=== PATIENT | female | born 1955 | race Caucasian/White ===

== ENCOUNTER 2016-10-12 09:58 | Emergency (ER) | payer MEDICAID, OTHER ==
[~2016-10-12] VITALS: Wt 95.0 kg
[~2016-10-12 09:58] MED LIST: DOCU-144 PO; HYDR-3498 PO
[2016-10-12] MEDS ORDERED: SOD CHLORIDE 0.9% 1,000 ML IV STA (19:39)
[2016-10-12] MEDS ORDERED: ONDANSETRON 4 MG INJ IV STA ×2 (19:39→20:31)
[2016-10-12] MEDS ORDERED: MECLIZINE 12.5 MG TAB PO ONE (20:00)
--- NOTE | 2016-10-12 20:25 | RADRPT ---
PROCEDURE: CT Brain without contrast. CLINICAL INDICATION: Altered mental status. TECHNIQUE: A CT of the brain was performed utilizing axial sections from the skull base through th e vertex without contrast. Multiplanar re-formations were generated. Images were reviewed on a high- resolution PACS workstation. CTDIvol: 38.29 mGy. DLP: 554.95 mGy-cm. One or more of the following dose reduction techniques were used: - Automated exposure control. - Adjustment of the mA and/or kV according to patient size. - Use of iterative reconstruction technique. COMPARISON: None available FINDINGS: The sulci are normal size for the patient's age. No hydrocephalus is seen. There is no mass effect. No acute intracranial hemorrhage is identified. There is no extra-axial collection. No CT evidence of acute infarction is identified. There is patchy low attenuation in the supratentorial white mat ter, a nonspecific finding which most likely represents the sequela of mild chronic microvascular is chemic disease. There is no significant mucosal disease in the paranasal sinuses. The visualized mastoid air cells a re clear. The ossesous structures are unremarkable. The extracranial soft tissues are unremarkable. IMPRESSION: 1. No acute intracranial pathology. 2. Mild chronic microvascular ischemic changes. RPTAT: HTAR .Wilfredo Arboleda MD, Date Time Electronically viewed and signed by .Wilfredo Arboleda MD, MD on 10/12/2016 20:25 .R/
--- NOTE | 2016-10-12 20:25 | RADRPT ---
PROCEDURE: Portable chest x-ray. CLINICAL INDICATION: Altered mental status. TECHNIQUE: Portable AP view of the chest. COMPARISON: None. FINDINGS: No pulmonary edema or conolidation is identified. The cardiac silhouette is magnified. No pleural effusion is seen. There is no pneumothorax. IMPRESSION: 1. No evidence of acute cardiopulmonary disease. RPTAT: HTAR .Wilfredo Arboleda MD, MD Date Time Electronically viewed and signed by .Wilfredo Arboleda MD, on 10/12/2016 20:25 .R/
[2016-10-12] MEDS ORDERED: morphine 4 MG/ML VIAL IV STA (20:31)
[2016-10-12 20:33] LABS: ADD SCAN DIFF NO
[2016-10-12 20:36] LABS: BASOPHIL # 0.1 10^3/ul (0.0-0.1); BASOPHILS % 0.4 % (0.0-2.0); EOSINOPHILS # 0.1 10^3/ul (0.0-0.5); HEMATOCRIT 40.6 % (37.0-47.0); HEMOGLOBIN 12.9 g/dl (12.0-16.0); LYMPHOCYTES # 3.4 10^3/ul (0.8-2.9); LYMPHOCYTES % 29.3 % (15.0-51.0); MEAN CORPUSCULAR HEMOGLOBIN 28.4 pg (29.0-33.0); MEAN CORPUSCULAR HGB CONC 31.8 g/dl (32.0-37.0); MEAN CORPUSCULAR VOLUME 89.4 fl (82.0-101.0); MEAN PLATELET VOLUME 10.4 fl (7.4-10.4); MONOCYTE # 0.7 10^3/ul (0.3-0.9); MONOCYTES % 6.3 % (0.0-11.0); NEUTROPHIL # 7.3 10^3/ul (1.6-7.5); NEUTROPHILS % 62.7 % (39.0-77.0); PLATELET COUNT 336 10^3/UL (140-415); RED BLOOD COUNT 4.54 10^6/ul (4.20-5.40); RED CELL DISTRIBUTION WIDTH 14.3 % (11.5-14.5); WHITE BLOOD COUNT 11.6 10^3/ul (4.8-10.8)
--- NOTE | 2016-10-12 20:43 | ERD ---
ER Documentation Chief Complaint Date/Time DATE: 10/12/16 TIME: 20:33 Chief Complaint DIZZY X 4 DAYS HPI This is a very pleasant 61-year-old [place]i-speaking female that presents to the emergency department complaining of intermittent dizziness for the past 4 days. The patient states she was recently diagnosed 1 week ago with a urinary tract infection. She was placed on 5 days of nitrofurantoin. She finished this 2 days prior to arrival but indicates she still been experiencing frequency urgency and dysuria. She states that she is experiencing suprapubic tenderness that radiates to the back. She denies a tactile fever shaking or chills. She denies a productive or nonproductive cough. She also complains of left shoulder pain which she states is exacerbated with movement, 6 out of 10 in intensity and she feels is related to a muscle strain as she was doing heavy lifting several days ago. She is right-handed dominant. She denies any numbness or tingling of her bilateral upper extremities. She denies any vertigo. She has no shortness of breath at rest or exertion. ROS All systems reviewed and are negative except as per history of present illness. Medications Home Meds Discontinued Scripts Hydrocodone Bit-Acetaminophen* ([place]*) 5-325 Mg Tab, 1 TAB PO Q6 Y for PAIN, # 15 TAB Prov:TUAN VERA DO 12/28/15 Docusate Sodium* ([place]ace*) 100 Mg Capsule, 100 MG PO TID, #30 Prov:RICHIE HERNANDEZ PA-C 02/20/15 Allergies Allergies: Coded Allergies: No Known Drug Allergies (Verified Allergy, Mild, 10/12/16) PMhx/Soc History of Surgery: Yes (L BREAST CA) Anesthesia Reaction: No Hx Neurological Disorder: No Hx Respiratory Disorders: No Hx Cardiac Disorders: No Hx Psychiatric Problems: No Hx Miscellaneous Medical Probl: Yes (HTN) Hx Alcohol Use: No Hx Substance Use: No Hx Tobacco Use: No Smoking Status: Never smoker Physical Exam Vitals Vital Signs Date Time Temp Pulse Resp B/P Pulse Ox O2 Delivery O2 Flow Rate FiO2 10/12/16 20:10 98.2 76 18 126/53 99 Room Air 10/12/16 10:12 98.0 73 18 150/67 99 Physical Exam Constitutional:Well-developed. Well-nourished. HEENT:Normocephalic. Atraumatic.Pupils were equal round reactive to light. Moist mucous membranes.No tonsillar exudates. No nasal septal hematoma. No hemotympanum. Funduscopy exam shows sharp optic disc bilaterally and venous pulsations were present. Neck: No nuchal rigidity. No lymphadenopathy. No posterior cervical spine tenderness or step-offs. Respiratory: Not using accessory muscles of respiration.Lungs were clear to auscultation bilaterally. No rhonchi. No rales. No wheezing. Cardiovascular: Regular rate regular rhythm.No murmurs. No rubs were appreciated.S1, S2 normal. Distal pulses are palpable 2+ bilaterally. GI: Abdomen was soft. Nontender. Non Distended. No pulsatile abdominal masses or bruits. No rebound. No guarding. Bowel sounds were present and normal. Mild suprapubic tenderness with no CVA tenderness Muscle skeletal: Full range of motion of both the upper and lower extremities bilaterally.Normal muscle tone.No assymetrical calf tenderness or swelling. Tenderness over the left acromioclavicular joint. Patient able to AB duct the left upper extremity past 90. Normal lie of the left humeral head. Skin: No petechia, no purpura. No lesions on the palms or the soles of the feet. No maculopapular rash. NEURO: Patient was alert, awake, orientated x3.No facial droop. Gait observed and normal with no ataxia.Speech had regular rate and rhythm. No focal neurological deficits. Result Diagram: 10/12/16201410/12/162014 Results 24 hrs Laboratory Tests Test 10/12/16 19:38 10/12/16 20:15 Urine Bilirubin NEGATIVE Urine Clarity CLEAR Urine Color LT. YELLOW Urine Glucose NEGATIVE% Urine Hemoglobin 2+ Urine Ketones NEGATIVE Urine Leukocyte Esterase NEGATIVE Urine Microscopic RBC 2-5/HPF Urine Microscopic WBC 0-2/HPF Urine Nitrite NEGATIVE Urine Specific [place] 1.010 Urine Squamous Epithelial Cells RARE Urine Total Protein NEGATIVE Urine Urobilinogen 0.2 E.U./dL Urine pH 6.0 Activated Partial Thromboplast Time 30.4Sec Alanine Aminotransferase (ALT/SGPT) 30IU/L Albumin 4.0g/dl Albumin/Globulin Ratio 1.14 Alkaline Phosphatase 145IU/L Anion Gap 17 Aspartate Amino Transf (AST/SGOT) 23IU/L Basophils # 0.110^3/ul Basophils % 0.4% Blood Urea Nitrogen 12mg/dl Calcium Level 9.2mg/dl Carbon Dioxide Level 31mmol/L Chloride Level 100mmol/L Creatinine 0.59mg/dl Direct Bilirubin 0.00mg/dl Eosinophils # 0.110^3/ul Eosinophils % 1.0% Globulin 3.50g/dl Glucose Level 97mg/dl Hematocrit 40.6% Hemoglobin 12.9g/dl INR International Normalized Ratio 0.99 Indirect Bilirubin 0.2mg/dl Lymphocytes # 3.410^3/ul Lymphocytes % 29.3% Mean Corpuscular Hemoglobin 28.4pg Mean Corpuscular Hemoglobin Concent 31.8g/dl Mean Corpuscular Volume 89.4fl Mean Platelet Volume 10.4fl Monocytes # 0.710^3/ul Monocytes % 6.3% Neutrophils # 7.310^3/ul Neutrophils % 62.7% Nucleated Red Blood Cells # 0.010^3/ul Nucleated Red Blood Cells % 0.0/100WBC Platelet Count 20798^3/UL Potassium Level 3.9mmol/L Prothrombin Time 13.1Sec Prothrombin Time Ratio 1.0 Red Blood Count 4.5410^6/ul Red Cell Distribution Width 14.3% Sodium Level 144mmol/L Total Bilirubin 0.2mg/dl Total Protein 7.5g/dl Troponin I < 0.012ng/ml White Blood Count 11.610^3/ul Current Medications Medications (Trade) Dose Ordered Sig/Sheree Route PRN Reason Start Time Stop Time Status Last Admin Dose Admin Sodium Chloride (NS) 1,000 ml @ 1,000 mls/hr Q1H STAT IV 10/12/16 19:39 10/12/16 20:38 DC 10/12/16 20:16 Ondansetron HCl (Zofran Inj) 4 mg ONCE STAT IV 10/12/16 19:39 10/12/16 19:41 DC 10/12/16 20:16 Meclizine HCl (Antivert) 25 mg ONCE ONCE PO 10/12/16 20:00 10/12/16 20:01 DC 10/12/16 20:16 Morphine Sulfate (morphine) 4 mg ONCE STAT IV 10/12/16 20:31 10/12/16 20:32 DC 10/12/16 20:46 Ondansetron HCl (Zofran Inj) 4 mg ONCE STAT IV 10/12/16 20:31 10/12/16 20:32 DC 10/12/16 20:46 Procedures/MDM This patient was seen and evaluated by myself. The patient presented to the emergency department complaining of dizziness. My differential diagnosis included but was not limited to hypovolemia, myocardial infarction, pulmonary embolism, hypoglycemia, hypoxia, anemia, vasovagal episode, hypothyroidism, anxiety, peripheral or central vertigo. The patient was placed on a dietetic tech, continuous pulse oximetry and IV access established by nursing staff. The patient received IV Zofran and Antivert. I obtained a CT scan of the head which showed no acute intracerebral hemorrhage mass-effect or midline shift. The patient complained of left shoulder pain with reproducible tenderness over the left acromial clavicular region. There is no evidence of shoulder dislocation. Chest radiograph showed no infiltrates pneumothorax or pleural effusions. I obtained a 12-lead EKG tracing to rule out atypical myocardial infarction 12 Lead EKG tracing ordered and reviewed by myself showed: Normal sinus rhythm of 76 bpm and no arrhythmia. AK interval normal. QRS duration normal. No ST segment elevation No ST segment depression. No changes consistent with acute ischemia. The patient had no evidence of sepsis and she did have a urinary tract infection recently with completion of nitrofurantoin. The urinalysis showed no evidence of cystitis on the urinalysis. Given that the patient was still symptomatic I did administer dose of IV ceftriaxone in the emergency department after a urine culture had been obtained. The patient was discharged home in fair condition. They were instructed to return to the emergency department at any time if there was any worsening of their condition. The patient stated they would follow up with their PCP in the next 24-48 hours to initiate a suitable medication regimen under the care of their PCP as well as to allow their PCP to monitor any drug reactions. The patient was discharged home with prescriptions after they gave informed consent to the new medication. They were also fully informed by myself on the adverse effects and adverse drug interactions in order to provide adequate safeguards to prevent possible adverse reactions to medications. Departure Diagnosis: Primary Impression: Dizziness Additional Impression: Shoulder pain, left Chronicity: acute Qualified Code: M25.512 - Acute pain of left shoulder Condition: Fair MARIANNE WEBB Oct 12, 2016 20:43
[2016-10-12 20:48] LABS: CHLORIDE 100 mmol/L (97-110); INR 0.99; POTASSIUM 3.9 mmol/L (3.5-5.1); PROTIME 13.1 Sec (12.2-14.2); SODIUM 144 mmol/L (135-144)
[2016-10-12 20:49] LABS: PARTIAL THROMBOPLASTIN TIME 30.4 Sec (25.0-35.0)
[2016-10-12 20:49] LABS: ADD UMIC YES; URINE BILIRUBIN (Dip) NEGATIVE (NEGATIVE); URINE BLOOD (Dip) 2+ (NEGATIVE); URINE COLOR LT. YELLOW (YELLOW); URINE GLUCOSE (Dip) NEGATIVE (NEGATIVE); URINE KETONES (Dip) NEGATIVE (NEGATIVE); URINE LEUKOCYTE ESTERASE (Dip) NEGATIVE (NEGATIVE); URINE NITRITE (Dip) NEGATIVE (NEGATIVE); URINE TOTAL PROTEIN (Dip) NEGATIVE (NEGATIVE); URINE UROBILINOGEN (Dip) 0.2 E.U./dL (0.1-1.0)
[2016-10-12 20:50] LABS: ALANINE AMINOTRANSFERASE 30 IU/L (13-69); ALBUMIN/GLOBULIN RATIO 1.14; ALKALINE PHOSPHATASE 145 IU/L (42-121); ANION GAP 17 (8-16); ASPARTATE AMINO TRANSFERASE 23 IU/L (15-46); BILIRUBIN,INDIRECT 0.2 mg/dl (0-1.1); BILIRUBIN,TOTAL 0.2 mg/dl (0.2-1.3); BLOOD UREA NITROGEN 12 mg/dl (7-20); CARBON DIOXIDE 31 mmol/L (21-31); CREATININE 0.59 mg/dl (0.44-1.00); TOTAL PROTEIN 7.5 g/dl (6.1-8.1)
[2016-10-12 20:51] LABS: CALCIUM 9.2 mg/dl (8.4-10.2); GLUCOSE 97 mg/dl (70-220)
[2016-10-12 20:58] LABS: SQUAMOUS EPITHELIAL CELL,UR RARE
[2016-10-12 21:04] LABS: TROPONIN-I < 0.012 ng/ml (0.00-0.12)
[2016-10-12] MEDS ORDERED: NAPR-260 PO (21:13)
[2016-10-12] MEDS ORDERED: MECL12.574 PO (21:13)
[2016-10-12] MEDS ORDERED: CEFTRIAXONE 1 GM/50 ML (PMX) 50 ML IVPB ONE (21:30)
[2016-10-12 21:46] VITALS: BP 117/53; PULSE 75; RESP 18; TEMP 98.1
== END 2016-10-12 21:47 | disposition home or self-care (01) ==
LOC: E/R 09:58
DX: R42 Dizziness and giddiness (principal); M25.512 Pain in left shoulder; I10 Essential (primary) hypertension; R10.30 Lower abdominal pain, unspecified; Z85.3 Personal history of malignant neoplasm of breast
CPT/HCPCS: 70450; 71010; 80053; 81001; 84484; 85025; 85610; 85730; 87086; 93005; 96374; 96375; J0696; J2270; J2405; J7030; Z7502; Z7610; 81003

== ENCOUNTER 2017-09-27 09:54 | Emergency (ER) | END 2017-09-27 14:29 | disposition home or self-care (01) ==

== ENCOUNTER 2018-02-22 11:07 | Emergency (ER) | END 2018-02-22 12:37 | disposition home or self-care (01) ==

== ENCOUNTER 2018-10-18 12:03 | Emergency (ER) | payer OTHER ==
[~2018-10-18] VITALS: Wt 95.9 kg
[~2018-10-18 12:03] MED LIST changes: -DOCU-144 PO; -HYDR-3498 PO; +MECL-77 PO; +MECL12.574 PO; +NAPR-985 PO; +NITR-58 PO; +TRAM50TA2 PO
--- NOTE | 2018-10-18 14:02 | ERD ---
ER Documentation Chief Complaint Chief Complaint bib self, cc: right abd. pain x 4 days, -n/v/d HPI The patient is a 63-year-old female, presenting to the ER because of epigastric and right upper quadrant abdominal discomfort after eating intermittently for the last 4 days, denies similar symptoms previously, denies fever, chills, neck pain, chest pain, dyspnea, vomiting, dysuria, diarrhea. She does not smoke, drink Past medical history: History of left breast CA status post radiation/chemo/partial mastectomy ROS All systems reviewed and are negative except as per history of present illness. Medications Home Meds Active Scripts Ibuprofen* (Motrin*) 600 Mg Tab, 600 MG PO Q6H PRN for PAIN AND OR ELEVATED TEMP, #20 TAB Prov:AIMEE CRAWFORD MD 10/18/18 Discontinued Scripts Meclizine Hcl* (Meclizine Hcl*) 25 Mg Tablet, 25 MG PO TID PRN for dizziness, #30 TAB Prov:AIMEE BERNAL DO 02/22/18 Nitrofurantoin Monohyd Macrocr* (Macrobid*) 100 Mg Capsr, 100 MG PO BID for 7 Days, #14 CAP Prov:AIMEE BERNAL DO 02/22/18 Tramadol HCl (Tramadol HCl) 50 Mg Tablet, 50 MG PO Q4 PRN for PAIN, #20 TAB Prov:CANDI CHAVIRA 09/27/17 Meclizine Hcl* (Antivert*) 12.5 Mg Tab, 12.5 MG PO Q6H PRN for DIZZINESS, #20 TAB Prov:MARIANNE WEBB MD 10/12/16 Naproxen* (Naprosyn*) 500 Mg Tablet, 500 MG PO BID PRN for PAIN AND/OR INFLAMMATION, #30 TAB Prov:MARIANNE WEBB MD 10/12/16 Allergies Allergies: Coded Allergies: No Known Drug Allergies (Verified Allergy, Mild, 10/18/18) PMhx/Soc History of Surgery: Yes (L BREAST CA) Anesthesia Reaction: No Hx Neurological Disorder: No Hx Respiratory Disorders: No Hx Cardiac Disorders: Yes (htn) Hx Psychiatric Problems: No Hx Miscellaneous Medical Probl: No Hx Alcohol Use: No Hx Substance Use: No Hx Tobacco Use: No Physical Exam Vitals Vital Signs Date Temp Pulse Resp B/P (MAP) Pulse Ox O2 O2 Flow FiO2 Time Delivery Rate 3/13/19 97.1 75 19 125/72 100 Room Air 14:36 (89) 10/18/18 97.1 83 19 156/76 100 12:14 (102) Physical Exam Const: No acute distress. Head: Atraumatic. Eyes: Normal Conjunctiva. ENT: Normal External Ears, Nose and Mouth. Neck: Full range of motion. No meningismus. Resp: Clear to auscultation bilaterally. Cardio: Regular rate and rhythm. Abd: Soft, non distended, normal bowel sounds, mild epigastric and right upper quadrant discomfort, no right lower quadrant/rigidity/rebound/CVA tenderness Skin: No petechiae or rashes. Back: No midline or flank tenderness. Ext: No cyanosis, or edema. Neur: Awake and alert. No focal deficit Psych: Normal Mood and Affect. Result Diagram: 10/18/18 1437 10/18/18 1437 Results 24 hrs Laboratory Tests Test 10/18/18 14:37 10/18/18 15:07 White Blood Count 10.2 10^3/ul Red Blood Count 4.47 10^6/ul Hemoglobin 12.6 g/dl Hematocrit 40.2 % Mean Corpuscular Volume 89.9 fl Mean Corpuscular Hemoglobin 28.2 pg Mean Corpuscular Hemoglobin Concent 31.3 g/dl Red Cell Distribution Width 14.5 % Platelet Count 341 10^3/UL Mean Platelet Volume 10.0 fl Immature Granulocytes % 0.300 % Neutrophils % 60.2 % Lymphocytes % 29.8 % Monocytes % 7.9 % Eosinophils % 1.2 % Basophils % 0.6 % Nucleated Red Blood Cells % 0.0 /100WBC Immature Granulocytes # 0.030 10^3/ul Neutrophils # 6.1 10^3/ul Lymphocytes # 3.0 10^3/ul Monocytes # 0.8 10^3/ul Eosinophils # 0.1 10^3/ul Basophils # 0.1 10^3/ul Nucleated Red Blood Cells # 0.0 10^3/ul Sodium Level 144 mmol/L Potassium Level 4.0 mmol/L Chloride Level 102 mmol/L Carbon Dioxide Level 31 mmol/L Anion Gap 11 Blood Urea Nitrogen 14 mg/dl Creatinine 0.61 mg/dl Est Glomerular Filtrat Rate mL/min > 60 mL/min Glucose Level 101 mg/dl Calcium Level 9.4 mg/dl Total Bilirubin 0.3 mg/dl Direct Bilirubin 0.00 mg/dl Indirect Bilirubin 0.3 mg/dl Aspartate Amino Transf (AST/SGOT) 29 IU/L Alanine Aminotransferase (ALT/SGPT) 26 IU/L Alkaline Phosphatase 143 IU/L Total Protein 8.1 g/dl Albumin 4.3 g/dl Globulin 3.80 g/dl Albumin/Globulin Ratio 1.13 Lipase 43 U/L Bedside Urine pH (LAB) 6.0 Bedside Urine Protein (LAB) Trace Bedside Urine Glucose (UA) Negative Bedside Urine Ketones (LAB) Trace Bedside Urine Blood Trace-intact Bedside Urine Nitrite (LAB) Negative Bedside Urine Leukocyte Esterase (L Negative Current Medications Medications Dose Sig/Sheree Start Time Status Last (Trade) Ordered Route PRN Stop Time Admin Dose Reason Admin Ketorolac 30 mg ONCE STAT 10/18/18 DC 10/18/18 Tromethamine IV 14:23 15:10 (Toradol) 10/18/18 14:25 Procedures/[place] [address] Radiology Main Line: [phone] DIAGNOSTIC IMAGING REPORT Patient: ALESSANDRO POLANCO : 1955 Age: 63 Sex: F MR #: [id number] DOS: 10/18/18 1423 Ordering MD: AIMEE CRAWFORD MD Location: E/R Room/Bed: PROCEDURE: US Abdomen. CLINICAL INDICATION: abdominal pain TECHNIQUE: Multiple real-time images were acquired of the patient's right upper quadrant abdomen and retroperitoneum utilizing a high resolution transducer. COMPARISON: None FINDINGS: The liver demonstrates increased echogenicity. The liver is normal in size and no focal solid lesions are seen. The liver measures 15.4 cm in length. The portal vein is patent with normal direction of flow. No intrahepatic biliary dilatation is seen. No gallstones are identified within the gallbladder. There is no pericholecystic fluid or gallbladder wall thickening. The common bile duct measures 3 mm in maximal dimension. The pancreas is not well seen due to overlying bowel gas. No free fluid is identified. The right kidney is normal in size, and demonstrate normal echogenicity and cortical thickness. The right kidney measures 10.3 cm in long dimension. There is no evidence of hydronephrosis. There are no kidney stones. RPTAT: AA IMPRESSION: Fatty infiltration of the liver. No evidence of gallstones. .Juan Espitia MD, MD Date Time Electronically viewed and signed by .Juan Espitia MD, on 10/18/2018 15:17 .S/ CC: AIMEE CRAWFORD MD [id number] MEDICAL MAKING DECISION: The patient is a 63-year-old female, presenting with acute abdominal pain of unclear etiology, is stable for outpatient follow-up. She was treated with Toradol 30 mg IV for pain with good response The differential diagnoses considered include but are not limited to cholelithiasis, cholecystitis, choledocholithiasis, cholangitis, pancreatitis, hepatitis, gastritis, peptic ulcer disease, gastric ulcer, appendicitis, cystitis, diverticulitis, partial small bowel obstruction. Departure Diagnosis: Primary Impression: Abdominal pain Additional Impression: Hepatic steatosis Condition: Good Comments She was discharged with Motrin I discussed the findings with the patient. I advised the patient to follow-up with the primary physician in about 2-3 days, sooner if needed and return if any concern. Disclaimer: Inadvertent spelling and grammatical errors are likely due to EHR/dictation software use and do not reflect on the overall quality of patient care. Also, please note that the electronic time recorded on this note does not necessarily reflect the actual time of the patient encounter. AIMEE CRAWFORD MD Oct 18, 2018 14:02
[2018-10-18] MEDS ORDERED: KETOROLAC 30 MG INJ IV STA (14:23)
[2018-10-18 14:36] VITALS: BP 125/72; PULSE 75; RESP 19
[2018-10-18] MEDS ORDERED: IBUP-1542 PO (15:38)
== END 2018-10-18 16:39 | disposition home or self-care (01) ==
LOC: E/R 12:03
DX: K76.0 Fatty (change of) liver, not elsewhere classified (principal); I10 Essential (primary) hypertension; Z85.3 Personal history of malignant neoplasm of breast
CPT/HCPCS: 36415; 76705; 80053; 81003; 83690; 85025; 96374; J1885; Z7502

== ENCOUNTER 2019-03-08 14:07 | Emergency (ER) | payer OTHER ==
[~2019-03-08] VITALS: Ht 152.4 cm; Wt 89.0 kg
[~2019-03-08 14:07] MED LIST changes: +CEPH-443 PO; +IBUP-1542 PO; -MECL-77 PO; -MECL12.574 PO; -NAPR-985 PO; -NITR-58 PO; -TRAM50TA2 PO
[2019-03-08 14:10] VITALS: BP 153/76; PULSE 86; RESP 18; Ht 152.4 cm; Wt 89.0 kg
[2019-03-08] MEDS ORDERED: IBUPROFEN 600 MG TAB PO ONE (15:30)
--- NOTE | 2019-03-08 16:02 | ERD ---
ER Documentation Chief Complaint Chief Complaint BACK PAIN X 2 DAYS HPI 63 year old female presents to ED with back pain x 2 days and painful urination. Reports burning sensation with urination. Denies blood in urine, denies fevers, chills. States this feels like a UTI to her that she has had in the past. Also reports the back pain is located across her lower back. Denies radiation of the pain. Pain is 4/10 and worse with movement, better with rest. Pain improves with Motrin. Past med hx: HTN ROS All systems reviewed and are negative except as per history of present illness. Medications Home Meds Active Scripts Ibuprofen* (Motrin*) 600 Mg Tab, 600 MG PO Q6H PRN for PAIN AND OR ELEVATED TEMP, #30 TAB Prov:JARRETT HERRON PA-C 03/08/19 Cephalexin* (Keflex*) 500 Mg Capsule, 500 MG PO BID for 7 Days, CAP Prov:JARRETT HERRON PA-C 03/08/19 Ibuprofen* (Motrin*) 600 Mg Tab, 600 MG PO Q6H PRN for PAIN AND OR ELEVATED TEMP, #20 TAB Prov:AIMEE CRAWFORD MD 10/18/18 Allergies Allergies: Coded Allergies: No Known Drug Allergies (Verified Allergy, Mild, 10/18/18) PMhx/Soc History of Surgery: Yes (left mastectomy) Anesthesia Reaction: No Hx Neurological Disorder: No Hx Respiratory Disorders: No Hx Cardiac Disorders: Yes (htn) Hx Psychiatric Problems: No Hx Miscellaneous Medical Probl: Yes (breast ca) Hx Alcohol Use: No Hx Substance Use: No Hx Tobacco Use: No Smoking Status: Never smoker FmHx Family History: No diabetes Physical Exam Vitals Vital Signs Date Temp Pulse Resp B/P (MAP) Pulse Ox O2 O2 Flow FiO2 Time Delivery Rate 03/08/19 98.3 86 18 153/76 99 14:10 (101) Physical Exam Const: No acute distress Head: Atraumatic Neck: Full range of motion. Nontender Resp: Clear to auscultation bilaterally Cardio: Regular rate and rhythm, Abd: Soft, non tender, non distended. Back: Slight localized tenderness across low back. Pain with movement Ext: No cyanosis, or edema Neur: Awake and alert Psych: Normal Mood and Affect Results 24 hrs Laboratory Tests Test 03/08/19 15:09 Urine Color YELLOW Urine Clarity CLEAR Urine pH 5.0 Urine Specific [place] 1.017 Urine Ketones NEGATIVE mg/dL Urine Nitrite NEGATIVE mg/dL Urine Bilirubin NEGATIVE mg/dL Urine Urobilinogen NEGATIVE mg/dL Urine Leukocyte Esterase NEGATIVE Jack/ul Urine Microscopic RBC 2 /HPF Urine Microscopic WBC 1 /HPF Urine Squamous Epithelial Cells FEW /HPF Urine Hemoglobin 1+ mg/dL Urine Glucose NEGATIVE mg/dL Urine Total Protein NEGATIVE mg/dl Current Medications Medications Dose Sig/Sheree Start Time Status Last (Trade) Ordered Route PRN Stop Time Admin Dose Reason Admin Ibuprofen 600 mg ONCE ONCE 03/08/19 DC 03/08/19 (Motrin) PO 15:30 03/08/19 15:08 15:31 Procedures/MDM ED COURSE: The patient was stable throughout ED course. I kept the patient informed of laboratory and diagnostic imaging results throughout the ED course. MEDICATIONS GIVEN: Motrin Patient tolerated medication well with no adverse reactions. Patient reported improvement in pain. MEDICAL DECISION MAKING: Patient is a 63 yr old females presenting with burning urination and low back pain x 2 days. Patients does not have any high-risk features on history and denies Trauma, IVDA, cancer, significant weight loss or history of TB, and the patient has a normal neurologic exam without fever, severe or progressive neurologic deficits, new or worsening urinary retention, urinary/stool incont inence or decreased perineal sensation; therefore imaging was not indicated in the ED. I doubt spinal fracture, epidural hematoma, epidural abscess, unstable spinal pathology, emergent renal or aortic pathology, or spinal cord compression. Upon discharge, the patients pain was controlled, and the patient was ambulatory without a risk of falling. Return precautions were discussed i ncluding worsening pain, new/worsening weakness/numbness, difficulty urinating, or incontinence. Patient is aware that the purpose of this visit was to screen for an acute medical emergency requiring emergent stabilization. Chronic conditions, including malignancies, have not been ruled out. Patient is instructed to follow-up with a PCP and/or orthopedic surgeon as directed in discharge instructions for continued care and work-up. If unable to arrange follow-up, patient is instructed to return to the ED for reassessment. Patient was given verbal and written discharge instructions and acknowledges understanding Urinalysis was done and showed negative leuk esterates and nitrites. However, pt was symptomatic and was treated outpt basis with keflex. Vital signs were reviewed. Patient is afebrile. Patient was not hypoxic. Patient was hemodynamically stable. Patient was told to follow up with primary care for further care and management. PRESCRIPTION: Keflex, motrin DISCHARGE: At this time, patient is stable for discharge and outpatient management. I have instructed the patient to follow-up with their primary care physician in 1-2 days. I have discussed with the patient the possibility of needing to see a specialist for further workup and imaging studies if symptoms persist. I have instructed the patient to promptly return to the ER for any new or worsening symptoms including increased pain, fever, nausea, vomiting, weakness or LOC. The patient expressed understanding of and agreement with this plan. All questions were answered. Home care instructions were provided. Disclaimer: Inadvertent spelling and grammatical errors are likely due to EHR/dictation software use and do not reflect on the overall quality of patient care. Also, please note that the electronic time recorded on this note does not necessarily reflect the actual time of the patient encounter. Departure Diagnosis: Primary Impression: Dysuria Additional Impression: Low back pain Chronicity: acute Back pain laterality: midline Sciatica presence: without sciatica Qualified Codes: M54.5 - Low back pain Condition: Fair Patient Instructions: Dysuria Referrals: [facility] YOU HAVE RECEIVED A MEDICAL SCREENING EXAM AND THE RESULTS INDICATE THAT YOU DO NOT HAVE A CONDITION THAT REQUIRES URGENT TREATMENT IN THE EMERGENCY DEPARTMENT. FURTHER EVALUATION AND TREATMENT OF YOUR CONDITION CAN WAIT UNTIL YOU ARE SEEN IN YOUR DOCTORS OFFICE WITHIN THE NEXT 1-2 DAYS. IT IS YOUR RESPONSIBILITY TO MAKE AN APPOINTMENT FOR FOLOW-UP CARE. IF YOU HAVE A PRIMARY DOCTOR --you should call your primary doctor and schedule an appointment IF YOU DO NOT HAVE A PRIMARY DOCTOR YOU CAN CALL OUR PHYSICIAN REFERRAL HOTLINE AT IF YOU CAN NOT AFFORD TO SEE A PHYSICIAN YOU CAN CHOSE FROM THE FOLLOWING [facility] [address] [facility] [address] [facility] [address] [facility] [address] [facility] [address] [facility] [address] [facility]. [facility] YOU HAVE RECEIVED A MEDICAL SCREENING EXAM AND THE RESULTS INDICATE THAT YOU DO NOT HAVE A CONDITION THAT REQUIRES URGENT TREATMENT IN THE EMERGENCY DEPARTMENT. FURTHER EVALUATION AND TREATMENT OF YOUR CONDITION CAN WAIT UNTIL YOU ARE SEEN IN YOUR DOCTORS OFFICE WITHIN THE NEXT 1-2 DAYS. IT IS YOUR RESPONSIBILITY TO MAKE AN APPOINTMENT FOR FOLOW-UP CARE. IF YOU HAVE A PRIMARY DOCTOR --you should call your primary doctor and schedule and appointment IF YOU DO NOT HAVE A PRIMARY DOCTOR YOU CAN CALL OUR PHYSICIAN REFERRAL HOTLINE AT . IF YOU CAN NOT AFFORD TO SEE A PHYSICIAN YOU CAN CHOSE FROM THE FOLLOWING [facility]: [facility] [address] [place] [address] [facility] [address] [place] [address] [facility] [address] [place] [address] Additional Instructions: Call your primary care doctor TOMORROW for an appointment during the next 1-2 days.See the doctor sooner or return here if your condition worsens before your appointment time. JARRETT HERRON PA-C Mar 08, 2019 16:02
== END 2019-03-08 16:10 | disposition home or self-care (01) ==
LOC: FTE 14:07
DX: M54.5 Low back pain (principal); R30.0 Dysuria; I10 Essential (primary) hypertension; Z85.3 Personal history of malignant neoplasm of breast
CPT/HCPCS: 81001; Z7502; Z7610; 99283

== ENCOUNTER 2019-06-12 11:00 | Emergency (ER) | payer OTHER ==
[~2019-06-12] VITALS: Wt 110.0 kg
[~2019-06-12 11:00] MED LIST changes: +NAPR-985 PO
[2019-06-12 11:03] VITALS: BP 170/96; PULSE 86; RESP 18
[2019-06-12] MEDS ORDERED: KETOROLAC 30 MG INJ IM STA (14:28)
== END 2019-06-12 15:08 | disposition home or self-care (01) ==
LOC: FTE 11:00
DX: M54.2 Cervicalgia (principal); I10 Essential (primary) hypertension; R20.0 Anesthesia of skin; R20.2 Paresthesia of skin; Z85.3 Personal history of malignant neoplasm of breast
CPT/HCPCS: 36415; 80048; 81003; 84484; 85025; 93005; 96372; J1885; Z7502